=== PATIENT | female | born 1965 | race Two or more races ===

== ENCOUNTER 2017-02-12 08:26 | Emergency (ER) | payer MEDICAID ==
[~2017-02-12] VITALS: Ht 157.5 cm; Wt 60.3 kg
[2017-02-12 09:00] VITALS: BP 102/69
== END 2017-02-12 09:48 | disposition home or self-care (01) ==
LOC: ER 08:26
DX: J20.9 Acute bronchitis, unspecified (principal)
CPT/HCPCS: 71020